=== PATIENT | female | born 1940 | race Caucasian/White ===

== ENCOUNTER 2022-12-25 09:42 | Outpatient (CLI) | payer MEDICARE, BC | END 2022-12-25 23:59 | disposition home or self-care (01) | LOC: CARD DIAG 09:42 | PROVIDERS: ATTEND Internal Medicine Cardiovascular Disease | DX: I34.81 Nonrheumatic mitral (valve) annulus calcification (principal); R06.02 Shortness of breath | CPT/HCPCS: 93306 ==